=== PATIENT | male | born 1935 | race Caucasian/White ===

== ENCOUNTER 2018-09-03 14:10 | Outpatient (CLI) | payer MEDICARE, OTHER ==
--- NOTE | 2018-09-03 15:46 | BD ---
BONE DENSITOMETRY USING DEXA HISTORY: Screening for osteoporosis. FINDINGS: Lumbar Spine: BMD (g/cm2) T-Score: Z-Score: L1 1.190 1.1 2.2 L2 1.135 0.4 1.6 L3 1.305 1.8 3.1 L4 1.403 2.3 4.1 L1-L4 1.259 1.5 2.8 Femoral Neck: 0.822 -0.8 0.8 Total Femur: 1.065 0.2 1.3 Impression: Normal BMD. No evidence of osteopenia/osteoporosis. POS: [facility]
== END 2018-09-03 14:11 | disposition home or self-care (01) ==
LOC: BICMAMMO 14:10
PROVIDERS: ATTEND Family Medicine
DX: Z13.820 Encounter for screening for osteoporosis (principal)
CPT/HCPCS: 77080